=== PATIENT | male | born 1990 | race Two or more races ===

== ENCOUNTER 2018-04-15 21:24 | Emergency (ER) | payer OTHER ==
[~2018-04-15] VITALS: Ht 157.5 cm; Wt 63.5 kg
[2018-04-15 21:51] VITALS: BP 116/53
[2018-04-15] MEDS ORDERED: fentaNYL CITRATE 100 MCG/2 ML VL IV ONE (22:15)
[2018-04-15] MEDS ORDERED: ETOMIDATE (2MG/ML) 20ML VIAL IV ONE (22:15)
[2018-04-15] MEDS ORDERED: SODIUM CHLORIDE 0.9% 1,000 ML IV ONE (22:15)
== END 2018-04-15 23:06 | disposition home or self-care (01) ==
LOC: ER 21:32
DX: S43.004A Unspecified dislocation of right shoulder joint, initial encounter (principal); W26.8XXA Contact with other sharp object(s), not elsewhere classified, initial encounter; Y93.89 Activity, other specified; Y92.89 Other specified places as the place of occurrence of the external cause; Y99.8 Other external cause status
CPT/HCPCS: 23650; 73020; 96374; 99152; 99153; 99285; J3010; J7030